=== PATIENT | female | born 1950 | race Caucasian/White ===

== ENCOUNTER 2020-10-03 10:30 | Inpatient (IN) | payer MEDICARE ==
[~2020-10-03] VITALS: Ht 157.5 cm; Wt 87.1 kg
[2020-10-07 06:53] VITALS: BP 131/80
[2020-10-07] MEDS ORDERED: PLEASE ENTER ALLERGIES MC SCH (07:00)
[2020-10-07] MEDS ORDERED: CHLORHEXIDINE 15 ML UDC MM ONE (07:00)
[2020-10-07] MEDS ORDERED: LACTATED RINGERS 1,000 ML IV SCH (07:00)
[2020-10-07] MEDS ORDERED: HEPARIN 1,000 UNITS/ML, 30ML ONE (07:14)
[2020-10-07] MEDS ORDERED: HYDR-1067 PO (07:25)
[2020-10-07] MEDS ORDERED: GABA300C PO (07:25)
[2020-10-07] MEDS ORDERED: ALLO100T30 PO (07:25)
[2020-10-07] MEDS ORDERED: HYDR25TA6 PO (07:25)
[2020-10-07] MEDS ORDERED: DULO20CA45 PO (07:25)
[2020-10-07] MEDS ORDERED: LOSA100T14 PO (07:25)
[2020-10-07] MEDS ORDERED: ATOR10TA9 PO (07:25)
[2020-10-07] MEDS ORDERED: ATEN50TA41 PO (07:25)
[2020-10-07] MEDS ORDERED: MELA10TA7 PO (07:25)
[2020-10-07] MEDS ORDERED: BUPIVACAINE/PF 0.5% ONE (08:23)
[2020-10-07] MEDS ORDERED: BUPIVACAINE/PF 0.25% ONE (08:23)
[2020-10-07] MEDS ORDERED: EPINEPHRINE 1 MG/ML, 1ML ONE (08:23)
[2020-10-07] MEDS ORDERED: VANCOMYCIN 1,000 MG ONE (08:23)
[2020-10-07] MEDS ORDERED: BACITRACIN 50,000 UNIT ONE (08:24)
[2020-10-07] MEDS ORDERED: LIDOCAINE-MPF 2% ,5ML ONE (08:52)
[2020-10-07] MEDS ORDERED: SUGAMMADEX 200 MG/2 ML IVPush ONE (08:52)
[2020-10-07] MEDS ORDERED: ONDANSETRON 2MG/ML, 2ML ONE (08:52)
[2020-10-07] MEDS ORDERED: PROPOFOL 10 MG/ML, 50ML ONE ×2 (08:52)
[2020-10-07] MEDS ORDERED: ROCURONIUM 10MG/ML,5ML ONE (08:52)
[2020-10-07] MEDS ORDERED: MIDAZOLAM 1 MG/ML, 2ML ONE (08:52)
[2020-10-07] MEDS ORDERED: SUCCINYLCHOLINE 20 MG/ML, 10ML ONE (08:52)
[2020-10-07] MEDS ORDERED: PROPOFOL 10 MG/ML, 20ML ONE (08:52)
[2020-10-07] MEDS ORDERED: DEXAMETHASONE 4 MG/ML, 5ML ONE (08:52)
[2020-10-07] MEDS ORDERED: CEFAZOLIN 1,000 MG ONE ×2 (08:52)
[2020-10-07] MEDS ORDERED: FENTANYL PF 250 MCG/5ML ONE (08:52)
[2020-10-07] MEDS ORDERED: ACETAMINOPHEN 325 MG TABLET PO PRN (09:30)
[2020-10-07] MEDS ORDERED: OXYcodone 5 MG/5 ML ORAL.SOL UDC PO PRN (09:30)
[2020-10-07] MEDS ORDERED: DIAZEPAM 5 MG/ML, 2ML IVPush PRN (09:30)
[2020-10-07] MEDS ORDERED: FENTANYL PF 100 MCG/2ML IV PRN (09:30)
[2020-10-07] MEDS ORDERED: DIPHENHYDRAMINE 50 MG/ML, 1ML IVPush PRN (09:30)
[2020-10-07] MEDS ORDERED: MEPERIDINE/PF 25MG/0.5ML IVPush PRN (09:30)
[2020-10-07] MEDS ORDERED: ONDANSETRON 2MG/ML, 2ML IVPush PRN ×2 (09:30→12:30)
[2020-10-07] MEDS ORDERED: METHOCARBAMOL 1,000 MG in DEXTROSE 5% 100 ML IV PRN (09:30)
[2020-10-07] MEDS ORDERED: PROMETHAZINE 25 MG/ML, 1ML IVPush PRN (09:30)
[2020-10-07] MEDS ORDERED: HYDROmorphone 1 MG/ML, 1ML INJ ONE (12:13)
[2020-10-07] MEDS: HYDROmorphone 1 MG/ML, 1ML INJ IVPush PRN ×2 (12:18→12:35)
[2020-10-07] MEDS ORDERED: BISACODYL 10 MG SUPP PR PRN (12:30)
[2020-10-07] MEDS ORDERED: PROMETHAZINE 25 MG/ML, 1ML IM PRN (12:30)
[2020-10-07] MEDS ORDERED: PHARMACY MAY ADJ FOR RENAL FX MC PRN (12:30)
[2020-10-07] MEDS: SENNA/DOCUSATE TABLET PO SCH (12:30)
[2020-10-07] MEDS ORDERED: HYDROmorphone PCA 30 MG/30 ML IV PRN (12:30)
[2020-10-07] MEDS ORDERED: OXYcodone 5 MG/5 ML ORAL.SOL UDC ONE (12:33)
[2020-10-07 14:27] VITALS: BP 144/84
[2020-10-07] MEDS: GABAPENTIN 300 MG CAPSULE PO SCH ×2 (15:32→20:44)
[2020-10-07] MEDS: CEFAZOLIN PMX 1GM/50ML 50 ML IVPB SCH (15:32)
[2020-10-07] MEDS: NS + 20MEQ KCL 1,000 ML IV SCH (15:32)
[2020-10-07 19:51] VITALS: BP 109/65
[2020-10-07] MEDS: DULOXETINE 20 MG CAPSULE.DR PO SCH (20:44)
[2020-10-07] MEDS: ATORVASTATIN 10 MG TABLET PO SCH (20:44)
[2020-10-07 23:34] VITALS: BP 126/57
[2020-10-08] MEDS: NS + 20MEQ KCL 1,000 ML IV SCH (00:13)
[2020-10-08] MEDS: CEFAZOLIN PMX 1GM/50ML 50 ML IVPB SCH (00:13)
[2020-10-08 03:18] VITALS: BP 115/72
[2020-10-08 05:26] LABS: BASOPHILS % (AUTO) 0 % (0-1); EOSINOPHILS % (AUTO) 0 % (1-7); LYMPHOCYTES % (AUTO) 11 % (22-44); MEAN CORPUSCULAR HEMOGLOBIN 32.1 pg (27.0-34.8); MEAN CORPUSCULAR HGB CONC 32.4 g/dL (32.4-35.8); MEAN PLATELET VOLUME 7.6 fL (7.4-10.4); MONOCYTES % (AUTO) 9 % (2-9); NEUTROPHILS % (AUTO) 81 % (42-75); PLATELET COUNT 295 x10^3/uL (130-400); RED BLOOD COUNT 3.36 x10^6/uL (3.82-5.3); RED CELL DISTRIBUTION WIDTH 14.6 % (9.6-15.2)
[2020-10-08 05:27] LABS: MD NO
[2020-10-08 05:32] LABS: ANION GAP 6 mmol/L (5-15); CALCIUM 8.3 mg/dL (8.5-10.1); CHLORIDE 108 mmol/L (98-107); CREATININE 1.63 mg/dL (0.55-1.02)
[2020-10-08 07:57] VITALS: BP 107/67
[2020-10-08] MEDS: HYDROCHLOROTHIAZIDE 25 MG TABLET PO SCH (08:06)
[2020-10-08] MEDS: GABAPENTIN 300 MG CAPSULE PO SCH ×3 (08:06→21:25)
[2020-10-08] MEDS: LOSARTAN 100 MG TAB PO SCH (08:06)
[2020-10-08] MEDS: ALLOPURINOL 100 MG TABLET PO SCH (08:06)
[2020-10-08] MEDS: DULOXETINE 20 MG CAPSULE.DR PO SCH ×2 (08:06→21:25)
[2020-10-08] MEDS: SENNA/DOCUSATE TABLET PO SCH (08:06)
[2020-10-08] MEDS: ATENOLOL 50 MG TABLET PO SCH (08:06)
[2020-10-08] MEDS: SODIUM CHLORIDE 0.9% 1,000 ML IV SCH ×2 (09:37→21:25)
[2020-10-08 14:10] VITALS: BP 118/62
[2020-10-08 19:08] VITALS: BP 131/81
[2020-10-08] MEDS: ATORVASTATIN 10 MG TABLET PO SCH (21:25)
[2020-10-09] VITALS (8 sets, daily range): BP systolic 69–109; BP diastolic 36–68
[2020-10-09] MEDS: TIZANIDINE 4MG TABLET PO PRN ×3 (00:11→21:52)
[2020-10-09] MEDS: OXYcodone IR 5MG TABLET PO PRN ×4 (00:12→21:50)
[2020-10-09] MEDS: SODIUM CHLORIDE 0.9% 1,000 ML IV SCH ×2 (04:02→17:39)
[2020-10-09] MEDS: HYDROmorphone 1 MG/ML, 1ML INJ IVPush PRN (04:18)
[2020-10-09 05:59] LABS: BASOPHILS % (AUTO) 0 % (0-1); EOSINOPHILS % (AUTO) 1 % (1-7); LYMPHOCYTES % (AUTO) 12 % (22-44); MEAN CORPUSCULAR HEMOGLOBIN 32.7 pg (27.0-34.8); MEAN PLATELET VOLUME 7.6 fL (7.4-10.4); MONOCYTES % (AUTO) 8 % (2-9); NEUTROPHILS % (AUTO) 79 % (42-75); PLATELET COUNT 219 x10^3/uL (130-400); RED BLOOD COUNT 2.79 x10^6/uL (3.82-5.3); RED CELL DISTRIBUTION WIDTH 14.5 % (9.6-15.2)
[2020-10-09 06:08] LABS: ANION GAP 6 mmol/L (5-15); CALCIUM 8.5 mg/dL (8.5-10.1); CHLORIDE 107 mmol/L (98-107)
[2020-10-09 06:11] LABS: CREATININE 1.33 mg/dL (0.55-1.02)
[2020-10-09 06:30] LABS: MD NO
[2020-10-09] MEDS: HYDROCHLOROTHIAZIDE 25 MG TABLET PO SCH (09:00)
[2020-10-09] MEDS: LOSARTAN 100 MG TAB PO SCH (09:00)
[2020-10-09] MEDS: ATENOLOL 50 MG TABLET PO SCH (09:00)
[2020-10-09] MEDS: SENNA/DOCUSATE TABLET PO SCH (09:01)
[2020-10-09] MEDS: GABAPENTIN 300 MG CAPSULE PO SCH ×3 (09:01→21:50)
[2020-10-09] MEDS: DULOXETINE 20 MG CAPSULE.DR PO SCH ×2 (09:02→21:50)
[2020-10-09] MEDS: ALLOPURINOL 100 MG TABLET PO SCH (09:02)
[2020-10-09] MEDS ORDERED: SODIUM CHLORIDE 0.9% 500 ML IV SCH (10:30)
[2020-10-09] MEDS ORDERED: SODIUM CHLORIDE 0.9%, 500ML IVBOLUS ONE (15:30)
[2020-10-09] MEDS: ATORVASTATIN 10 MG TABLET PO SCH (21:49)
[2020-10-10 00:27] VITALS: BP 90/60
[2020-10-10] MEDS: OXYcodone IR 5MG TABLET PO PRN ×3 (01:57→14:21)
[2020-10-10] MEDS: HYDROmorphone 1 MG/ML, 1ML INJ IVPush PRN (03:24)
[2020-10-10] MEDS: SODIUM CHLORIDE 0.9% 1,000 ML IV SCH ×2 (03:24→17:03)
[2020-10-10 05:06] LABS: BASOPHILS % (AUTO) 1 % (0-1); EOSINOPHILS % (AUTO) 2 % (1-7); LYMPHOCYTES % (AUTO) 13 % (22-44); MEAN CORPUSCULAR HGB CONC 33.4 g/dL (32.4-35.8); MEAN PLATELET VOLUME 7.7 fL (7.4-10.4); MONOCYTES % (AUTO) 6 % (2-9); NEUTROPHILS % (AUTO) 78 % (42-75); PLATELET COUNT 188 x10^3/uL (130-400); RED BLOOD COUNT 2.37 x10^6/uL (3.82-5.3); RED CELL DISTRIBUTION WIDTH 14.1 % (9.6-15.2)
[2020-10-10 05:12] LABS: MD NO
[2020-10-10 05:16] LABS: ANION GAP 5 mmol/L (5-15); CALCIUM 8.1 mg/dL (8.5-10.1); CHLORIDE 108 mmol/L (98-107)
[2020-10-10 05:19] LABS: CREATININE 1.23 mg/dL (0.55-1.02)
[2020-10-10 07:20] VITALS: BP 108/69
[2020-10-10] MEDS: HYDROCHLOROTHIAZIDE 25 MG TABLET PO SCH (09:30)
[2020-10-10] MEDS: ATENOLOL 50 MG TABLET PO SCH (09:30)
[2020-10-10] MEDS: LOSARTAN 100 MG TAB PO SCH (09:30)
[2020-10-10] MEDS: GABAPENTIN 300 MG CAPSULE PO SCH ×3 (09:40→20:56)
[2020-10-10] MEDS: DULOXETINE 20 MG CAPSULE.DR PO SCH ×2 (09:40→20:55)
[2020-10-10] MEDS: TIZANIDINE 4MG TABLET PO PRN ×2 (09:40→20:57)
[2020-10-10] MEDS: ALLOPURINOL 100 MG TABLET PO SCH (09:40)
[2020-10-10] MEDS: SENNA/DOCUSATE TABLET PO SCH (09:40)
[2020-10-10] MEDS ORDERED: HYDROmorphone 1 MG/ML, 1ML INJ IVPush PRN (10:30)
[2020-10-10] MEDS: DEXAMETHASONE 4 MG/ML, 1ML IVPush SCH ×3 (10:35→20:56)
[2020-10-10 15:00] VITALS: BP 155/97
[2020-10-10 19:24] VITALS: BP 106/70
[2020-10-10] MEDS: ATORVASTATIN 10 MG TABLET PO SCH (20:55)
[2020-10-11 00:42] VITALS: BP 107/62
[2020-10-11] MEDS: DEXAMETHASONE 4 MG/ML, 1ML IVPush SCH ×4 (03:24→20:32)
[2020-10-11] MEDS: SODIUM CHLORIDE 0.9% 1,000 ML IV SCH ×3 (03:24→23:46)
[2020-10-11 05:27] LABS: BASOPHILS % (AUTO) 0 % (0-1); EOSINOPHILS % (AUTO) 0 % (1-7); LYMPHOCYTES % (AUTO) 6 % (22-44); MEAN CORPUSCULAR HEMOGLOBIN 33.2 pg (27.0-34.8); MEAN CORPUSCULAR HGB CONC 34.1 g/dL (32.4-35.8); MEAN PLATELET VOLUME 7.9 fL (7.4-10.4); MONOCYTES % (AUTO) 3 % (2-9); NEUTROPHILS % (AUTO) 91 % (42-75); PLATELET COUNT 221 x10^3/uL (130-400); RED BLOOD COUNT 2.56 x10^6/uL (3.82-5.3); RED CELL DISTRIBUTION WIDTH 14.3 % (9.6-15.2)
[2020-10-11 05:30] LABS: CHLORIDE 109 mmol/L (98-107)
[2020-10-11 05:34] LABS: ANION GAP 8 mmol/L (5-15); CALCIUM 8.4 mg/dL (8.5-10.1); CREATININE 1.07 mg/dL (0.55-1.02)
[2020-10-11 06:01] LABS: MD SCAN
[2020-10-11 08:00] VITALS: BP 137/75
[2020-10-11] MEDS: LOSARTAN 100 MG TAB PO SCH (08:40)
[2020-10-11] MEDS: MAGNESIUM HYDROXIDE 8%, 30ML UDC PO PRN (08:40)
[2020-10-11] MEDS: DULOXETINE 20 MG CAPSULE.DR PO SCH ×2 (08:40→20:32)
[2020-10-11] MEDS: SENNA/DOCUSATE TABLET PO SCH (08:41)
[2020-10-11] MEDS: GABAPENTIN 300 MG CAPSULE PO SCH ×3 (08:41→20:32)
[2020-10-11] MEDS: ATENOLOL 50 MG TABLET PO SCH (08:41)
[2020-10-11] MEDS: ALLOPURINOL 100 MG TABLET PO SCH (08:41)
[2020-10-11] MEDS: HYDROCHLOROTHIAZIDE 25 MG TABLET PO SCH (08:42)
[2020-10-11] MEDS: OXYcodone IR 5MG TABLET PO PRN ×3 (09:34→22:16)
[2020-10-11 12:34] VITALS: BP 128/71
[2020-10-11 20:04] VITALS: BP 145/72
[2020-10-11] MEDS: ATORVASTATIN 10 MG TABLET PO SCH (20:32)
[2020-10-11] MEDS: DIPHENHYDRAMINE 50 MG/ML, 1ML IVPush PRN (23:53)
[2020-10-12 01:27] VITALS: BP 162/75
[2020-10-12] MEDS: DEXAMETHASONE 4 MG/ML, 1ML IVPush SCH ×4 (03:02→20:18)
[2020-10-12] MEDS: TIZANIDINE 4MG TABLET PO PRN ×2 (05:41→20:17)
[2020-10-12] MEDS: OXYcodone IR 5MG TABLET PO PRN ×3 (05:41→20:18)
[2020-10-12 05:43] LABS: BASOPHILS % (AUTO) 0 % (0-1); EOSINOPHILS % (AUTO) 0 % (1-7); LYMPHOCYTES % (AUTO) 6 % (22-44); MEAN CORPUSCULAR HEMOGLOBIN 32.8 pg (27.0-34.8); MEAN CORPUSCULAR HGB CONC 33.4 g/dL (32.4-35.8); MEAN PLATELET VOLUME 7.9 fL (7.4-10.4); MONOCYTES % (AUTO) 4 % (2-9); NEUTROPHILS % (AUTO) 90 % (42-75); PLATELET COUNT 305 x10^3/uL (130-400); RED BLOOD COUNT 2.73 x10^6/uL (3.82-5.3); RED CELL DISTRIBUTION WIDTH 14.1 % (9.6-15.2)
[2020-10-12 05:45] LABS: MD NO
[2020-10-12 05:48] LABS: ANION GAP 6 mmol/L (5-15); CALCIUM 8.5 mg/dL (8.5-10.1); CHLORIDE 111 mmol/L (98-107); CREATININE 1.08 mg/dL (0.55-1.02)
[2020-10-12 07:35] VITALS: BP 113/72
[2020-10-12] MEDS ORDERED: TIZA4TAB2 PO (08:05)
[2020-10-12] MEDS ORDERED: METH4TAB2 PO (08:05)
[2020-10-12] MEDS ORDERED: SENN-211 PO (08:05)
[2020-10-12] MEDS ORDERED: OXYC5TAB98 PO (08:13)
[2020-10-12 08:24] LABS: ANION GAP 6 mmol/L (5-15); CALCIUM 8.6 mg/dL (8.5-10.1); CHLORIDE 112 mmol/L (98-107); CREATININE 1.13 mg/dL (0.55-1.02)
[2020-10-12] MEDS ORDERED: CALCIUM CARBONATE 500 MG TAB.CHEW PO PRN (08:30)
[2020-10-12] MEDS: ATENOLOL 50 MG TABLET PO SCH (09:00)
[2020-10-12] MEDS: SENNA/DOCUSATE TABLET PO SCH (09:07)
[2020-10-12] MEDS: GABAPENTIN 300 MG CAPSULE PO SCH ×3 (09:07→20:17)
[2020-10-12] MEDS: HYDROCHLOROTHIAZIDE 25 MG TABLET PO SCH (09:08)
[2020-10-12] MEDS: ALLOPURINOL 100 MG TABLET PO SCH (09:08)
[2020-10-12] MEDS: DULOXETINE 20 MG CAPSULE.DR PO SCH ×2 (09:08→20:17)
[2020-10-12] MEDS: LOSARTAN 100 MG TAB PO SCH (09:08)
[2020-10-12] MEDS: SODIUM CHLORIDE 0.9% 1,000 ML IV SCH ×2 (09:21→20:17)
[2020-10-12 14:30] VITALS: BP 118/60
[2020-10-12] MEDS ORDERED: SODIUM ZIRCONIUM CYCLOSILICATE 10 GM PO ONE (14:30)
[2020-10-12 18:55] VITALS: BP 151/69
[2020-10-12] MEDS: ATORVASTATIN 10 MG TABLET PO SCH (20:17)
[2020-10-13 02:10] VITALS: BP 172/79
[2020-10-13] MEDS: DEXAMETHASONE 4 MG/ML, 1ML IVPush SCH ×5 (02:17→22:13)
[2020-10-13] MEDS: OXYcodone IR 5MG TABLET PO PRN ×5 (02:17→20:34)
[2020-10-13 03:28] VITALS: BP 129/75
[2020-10-13 05:39] LABS: BASOPHILS % (AUTO) 0 % (0-1); EOSINOPHILS % (AUTO) 0 % (1-7); LYMPHOCYTES % (AUTO) 7 % (22-44); MEAN CORPUSCULAR HEMOGLOBIN 32.9 pg (27.0-34.8); MONOCYTES % (AUTO) 3 % (2-9); NEUTROPHILS % (AUTO) 90 % (42-75); PLATELET COUNT 324 x10^3/uL (130-400); RED CELL DISTRIBUTION WIDTH 14.4 % (9.6-15.2)
[2020-10-13 05:45] LABS: ANION GAP 8 mmol/L (5-15); CALCIUM 8.2 mg/dL (8.5-10.1); CHLORIDE 112 mmol/L (98-107)
[2020-10-13] MEDS: SODIUM CHLORIDE 0.9% 1,000 ML IV SCH (05:45)
[2020-10-13] MEDS: TIZANIDINE 4MG TABLET PO PRN (05:46)
[2020-10-13 05:47] LABS: CREATININE 1.29 mg/dL (0.55-1.02)
[2020-10-13 06:52] LABS: MD SCAN
[2020-10-13 08:12] VITALS: BP 157/75
[2020-10-13 08:45] VITALS: BP 155/69
[2020-10-13] MEDS: HYDROCHLOROTHIAZIDE 25 MG TABLET PO SCH (08:48)
[2020-10-13] MEDS: DULOXETINE 20 MG CAPSULE.DR PO SCH ×2 (08:48→20:33)
[2020-10-13] MEDS: ALLOPURINOL 100 MG TABLET PO SCH (08:48)
[2020-10-13] MEDS: GABAPENTIN 300 MG CAPSULE PO SCH ×3 (08:48→20:35)
[2020-10-13] MEDS: ATENOLOL 50 MG TABLET PO SCH (08:48)
[2020-10-13] MEDS: SENNA/DOCUSATE TABLET PO SCH (08:48)
[2020-10-13 13:48] VITALS: BP 151/76
[2020-10-13] MEDS: MAGNESIUM HYDROXIDE 8%, 30ML UDC PO PRN (15:52)
[2020-10-13 20:10] VITALS: BP 186/93
[2020-10-13] MEDS: hydrALAzine 20 MG/ML, 1ML IV PRN (20:33)
[2020-10-13] MEDS: ATORVASTATIN 10 MG TABLET PO SCH (20:35)
[2020-10-13] MEDS: LABETALOL 5MG/ML, 20ML IVPush PRN (22:13)
[2020-10-14] MEDS: DIPHENHYDRAMINE 50 MG/ML, 1ML IVPush PRN (00:01)
[2020-10-14 02:17] VITALS: BP 162/75
[2020-10-14] MEDS: LABETALOL 5MG/ML, 20ML IVPush PRN ×2 (02:50→05:06)
[2020-10-14] MEDS: DEXAMETHASONE 4 MG/ML, 1ML IVPush SCH ×2 (04:50→10:47)
[2020-10-14 05:05] VITALS: BP 169/68
[2020-10-14 05:29] LABS: ANION GAP 7 mmol/L (5-15); CALCIUM 8.4 mg/dL (8.5-10.1); CHLORIDE 110 mmol/L (98-107)
[2020-10-14 05:31] LABS: BASOPHILS % (AUTO) 0 % (0-1); CREATININE 1.25 mg/dL (0.55-1.02); EOSINOPHILS % (AUTO) 0 % (1-7); LYMPHOCYTES % (AUTO) 8 % (22-44); MEAN CORPUSCULAR HEMOGLOBIN 32.8 pg (27.0-34.8); MEAN CORPUSCULAR HGB CONC 33.3 g/dL (32.4-35.8); MEAN PLATELET VOLUME 7.6 fL (7.4-10.4); MONOCYTES % (AUTO) 8 % (2-9); NEUTROPHILS % (AUTO) 84 % (42-75); PLATELET COUNT 341 x10^3/uL (130-400); RED BLOOD COUNT 2.72 x10^6/uL (3.82-5.3); RED CELL DISTRIBUTION WIDTH 14.6 % (9.6-15.2)
[2020-10-14 05:53] LABS: MD NO
[2020-10-14 07:22] VITALS: BP 187/76
[2020-10-14] MEDS: hydrALAzine 20 MG/ML, 1ML IV PRN (07:24)
[2020-10-14 07:56] VITALS: BP 156/84
[2020-10-14] MEDS: ATENOLOL 50 MG TABLET PO SCH (08:23)
[2020-10-14] MEDS: GABAPENTIN 300 MG CAPSULE PO SCH (08:23)
[2020-10-14] MEDS: ALLOPURINOL 100 MG TABLET PO SCH (08:23)
[2020-10-14] MEDS: SENNA/DOCUSATE TABLET PO SCH (08:24)
[2020-10-14] MEDS: OXYcodone IR 5MG TABLET PO PRN ×3 (08:24→12:35)
[2020-10-14] MEDS: MAGNESIUM HYDROXIDE 8%, 30ML UDC PO PRN (08:24)
[2020-10-14] MEDS: HYDROCHLOROTHIAZIDE 25 MG TABLET PO SCH (08:24)
[2020-10-14] MEDS: DULOXETINE 20 MG CAPSULE.DR PO SCH (08:24)
[2020-10-14 12:00] VITALS: BP 157/83
== END 2020-10-14 13:13 | DRG 459 ==
LOC: ORIP 10-07 06:07 → 4NE 10-07 13:22 → 4EST 10-10 13:47
PROVIDERS: ADMIT Neurological Surgery; ATTEND Internal Medicine
PROC: 8E0W4CZ Robotic Assisted Procedure of Trunk Region, Percutaneous Endoscopic Approach (ICD-10-PCS; 2020-10-07)
PROC: 00NY0ZZ Release Lumbar Spinal Cord, Open Approach (ICD-10-PCS; 2020-10-07)
PROC: 0SG30AJ Fusion of Lumbosacral Joint with Interbody Fusion Device, Posterior Approach, Anterior Column, Open Approach (ICD-10-PCS; 2020-10-07)
PROC: 4A11X4G Monitoring of Peripheral Nervous Electrical Activity, Intraoperative, External Approach (ICD-10-PCS; 2020-10-07)
PROC: 3E0U0GB Introduction of Recombinant Bone Morphogenetic Protein into Joints, Open Approach (ICD-10-PCS; 2020-10-07)
PROC: 0SG00AJ Fusion of Lumbar Vertebral Joint with Interbody Fusion Device, Posterior Approach, Anterior Column, Open Approach (ICD-10-PCS; principal; 2020-10-07 08:30)
PROC: 0T2BX0Z Change Drainage Device in Bladder, External Approach (ICD-10-PCS; 2020-10-12)
DX: M48.062 Spinal stenosis, lumbar region with neurogenic claudication (principal); J96.01 Acute respiratory failure with hypoxia; I50.32 Chronic diastolic (congestive) heart failure; I13.0 Hypertensive heart and chronic kidney disease with heart failure and stage 1 through stage 4 chronic kidney disease, or unspecified chronic kidney disease; J98.11 Atelectasis; M43.16 Spondylolisthesis, lumbar region; M51.37 Other intervertebral disc degeneration, lumbosacral region; E78.5 Hyperlipidemia, unspecified; E87.5 Hyperkalemia; G89.29 Other chronic pain; N18.30 Chronic kidney disease, stage 3 unspecified; M10.9 Gout, unspecified; R33.9 Retention of urine, unspecified; D64.9 Anemia, unspecified; Z20.822 Contact with and (suspected) exposure to COVID-19; Z86.73 Personal history of transient ischemic attack (TIA), and cerebral infarction without residual deficits; Z88.8 Allergy status to other drugs, medicaments and biological substances
CPT/HCPCS: 36415; 72100; 72131; 80048; 85025; 95938; 95941; C1713; C1776; G0378; J0171; J0690; J1100; J1170; J1644; J2250; J2405; J2704; J3010; J3370; J3480; C1762; J0330; J0360; J1200; J2800; J7030; J7040; J7120

== ENCOUNTER → 2020-10-03 | Outpatient (CLI) | payer MEDICARE | END | disposition home or self-care (01) | LOC: STAR 14:45 | PROVIDERS: ATTEND Anesthesiology | DX: Z20.822 Contact with and (suspected) exposure to COVID-19 (principal) | CPT/HCPCS: 87635 ==